=== PATIENT | female | born 1960 | race Caucasian/White ===

== ENCOUNTER 2017-06-24 12:09 | Emergency (ER) | payer OTHER ==
[~2017-06-24] VITALS: Ht 167.6 cm; Wt 58.0 kg
[~2017-06-24 12:09] MED LIST: FERR-63 PO; IBUP-2030; IBUP-2030 PO; LORA2TAB95 PO; NAPR375T PO; URSO300C4 PO; ZOLP10TA6; ZOLP10TA6 PO
[2017-06-24 12:15] VITALS: BP 129/71
== END 2017-06-24 16:03 | disposition left against medical advice (07) ==
LOC: ER 12:18
DX: R51 Headache (principal); Z53.21 Procedure and treatment not carried out due to patient leaving prior to being seen by health care provider